=== PATIENT | male | born 1940 | race Two or more races ===

== ENCOUNTER 2020-09-04 13:35 | Emergency (ER) | payer MEDICARE ==
[~2020-09-04] VITALS: Ht 172.7 cm; Wt 65.8 kg
[2020-09-04 13:42] VITALS: BP 134/44
--- NOTE | 2020-09-04 13:42 | NUR ---
ED Nurse Note: Patient BIBIwona [id number] from [facility] c/o SOB x couple minutes ago. Per EMS, pt was desatting to 88% RA, placed on nc 4L, O2 sat 98%. Pt AAOx1, non verbal but is reponsive to pain and name. No signs of distress at this time. Pt placed on quality assurance monitor body. ERMD at bedside.
--- NOTE | 2020-09-04 13:43 | Emergency Room Report ---
History of Present Illness General Chief Complaint: Hypoxia Source: EMS (Brody Knox MD) Present Illness HPI Disclaimer: Please note that this report is being documented using DRAGON technology. This can lead to erroneous entry secondary to incorrect interpretation by the dictating instrument. HPI: 80-year-old male presents from nursing facility for evaluation of hypoxia. He has a history of hypertension, hyperlipidemia, CAD, Alzheimer's dementia and diabetes. He tested positive and was treated for Covid pneumonia on 08/26. He appears to be on Augmentin. Per EMS, his nursing facility found him hypoxic saturating 88% on room air. Improved with nasal cannula to 100%. No respiratory difficulty noted. Patient does not provide other significant information given his dementia. He does deny pain. PMH: Alzheimer's dementia, hypertension, hyperlipidemia, diabetes, CAD PSH: Unable to obtain from patient Allergies: Unable to obtain from patient Social Hx: Unable to obtain from patient (Brody Knox MD) Allergies: Coded Allergies: No Known Allergies (Unverified , 09/04/20) Review of Systems All Other Systems: negative except mentioned in HPI (Brody Knox MD) Physical Exam General: Somnolent but arousable to light touch, Colombian-speaking. Confused. No acute distress HEENT: NC/AT. EOMI. Cardiovascular: RRR. S1 and S2 normal. No murmur appreciated Resp: Slight increase in work of breathing. Saturating 107 nasal cannula. No wheezing. Abdomen: Abdomen is soft, nondistended. Nontender Skin: Intact. No abrasions, laceration or rash over the exposed skin MSK: Normal tone and bulk. Moving all extremities. No obvious deformity. Neuro: Somnolent. Arousable to light touch. Confused. Colombian-speaking (Brody Knox MD) Medical Decision Making Diagnostic Impression: Primary Impression: COVID-19 Additional Impressions: Hypoxia Respiratory distress ER Course 80-year-old male presents for evaluation of hypoxia in the setting of recent diagnosis of COVID-19 pneumonia. He appears to be on amoxicillin. Concern for worsening pneumonia, pulmonary edema, PE, ACS, bronchitis, asthma exacerbation, among others. Saturating 100% on nasal cannula no respiratory distress. Will obtain broad labs, give dexamethasone, repeat chest x-ray to evaluate for infiltrate burden. Patient will likely require admission. Signed out to oncoming physician pending completion of work-up and ultimate disposition. (Brody Knox MD) ER Course I spoke with Dr. Martinez at [facility] who accepted the patient for transfer. Case #[id number]. Patient had normal oxygen saturation on 2 L nasal cannula throughout the rest of his stay in the emergency department. He was mildly tachycardic at around 120 bpm and this gradually improved with IV fluids. Initial lactate was 2.3. Given a 30 cc/kg fluid bolus and will await results of repeat lactic acid. Patient tested positive once again for COVID-19 and chest x-ray showed diffuse interstitial infiltrates consistent with likely COVID-19 infection. He was given azithromycin. He also had evidence of urinary tract infection and was given ceftriaxone. D-dimer was elevated and he was given 40 units of subcutaneous Lovenox. Received Decadron IV. I spoke with the accepting physician at [facility] who agreed with the plan and that the patient was stable for transfer by ALS. EKG: NSR mildly tachycardic 111 bpm,, no ischemia, right bundle branch block. Normal axis.. No ectopy Rhythm strip: patient monitored for arrhythmias - no malignant dysrhythmias, runs of PVCs, nor pauses noted Chest x-ray: Indication shortness of breath: Mild diffuse pulmonary infiltrates in the interstitial regions. Otherwise no focal consolidation. No free air under the diaphragm. Normal heart borders. No bony abnormalities. No pneumothorax Total critical care time: Approximately 30 minutes Due to a high probability of clinically significant, life threatening deterioration, the patient required the highest level of preparedness to intervene emergently and I personally spent this critical care time directly and personally managing the patient. This critical care time included obtaining a history, examining the patient, pulse oximetry, ordering and reviewing studies, ordering treatments, evaluating response to treatment and updating management plan as needed, frequent reassessment and discussion with other providers as well as arranging for ultimate disposition. This critical to care time was performed to assess and manage the high probability of life-threatening deterioration that could result in multiorgan failure. This critical care time is separate from the separately billable procedures and treating other patients. Laboratory Tests Test 09/04/20 14:05 White Blood Count 10.1 K/UL (4.8-10.8) Red Blood Count 4.36 M/UL (4.70-6.10) L Hemoglobin 14.2 G/DL (14.2-18.0) Hematocrit 43.5 % (42.0-52.0) Mean Corpuscular Volume 100 FL (80-99) H Mean Corpuscular Hemoglobin 32.5 PG (27.0-31.0) H Mean Corpuscular Hemoglobin Concent 32.6 G/DL (32.0-36.0) Red Cell Distribution Width 12.6 % (11.6-14.8) Platelet Count 174 K/UL (150-450) Mean Platelet Volume 7.2 FL (6.5-10.1) Neutrophils (%) (Auto) % (45.0-75.0) Lymphocytes (%) (Auto) % (20.0-45.0) Monocytes (%) (Auto) % (1.0-10.0) Eosinophils (%) (Auto) % (0.0-3.0) Basophils (%) (Auto) % (0.0-2.0) Differential Total Cells Counted 100 Neutrophils % (Manual) 87 % (45-75) H Lymphocytes % (Manual) 13 % (20-45) L Monocytes % (Manual) 0 % (1-10) L Eosinophils % (Manual) 0 % (0-3) Basophils % (Manual) 0 % (0-2) Band Neutrophils 0 % (0-8) Platelet Estimate Adequate Platelet Morphology Normal Red Blood Cell Morphology Normal Prothrombin Time 14.5 SEC (9.30-11.50) H Prothrombin Time INR 1.3 (0.9-1.1) H Activated Partial Thromboplast Time 32 SEC (23-33) D-Dimer 1.31 mg/L FEU (0.00-0.49) H Urine Color Yellow Urine Appearance Clear Urine pH 5 (4.5-8.0) Urine Specific Oxly 1.020 (1.005-1.035) Urine Protein 3+ (NEGATIVE) H Urine Glucose (UA) 1+ (NEGATIVE) H Urine Ketones 1+ (NEGATIVE) H Urine Blood 5+ (NEGATIVE) H Urine Nitrite Negative (NEGATIVE) Urine Bilirubin Negative (NEGATIVE) Urine Urobilinogen Normal MG/DL (0.0-1.0) Urine Leukocyte Esterase 1+ (NEGATIVE) H Urine RBC 20-30 /HPF (0 - 0) H Urine WBC 0-2 /HPF (0 - 0) Urine Squamous Epithelial Cells Occasional /LPF Urine Bacteria Occasional /HPF (NONE) Sodium Level 140 MMOL/L (136-145) Potassium Level 4.4 MMOL/L (3.5-5.1) Chloride Level 104 MMOL/L (98-107) Carbon Dioxide Level 28 MMOL/L (21-32) Anion Gap 8 mmol/L (5-15) Blood Urea Nitrogen 30 mg/dL (7-18) H Creatinine 1.8 MG/DL (0.55-1.30) H Estimated Glomerular Filtration Rate 36.3 mL/min (>60) Glucose Level 200 MG/DL (74-106) H Lactic Acid Level 2.30 mmol/L (0.4-2.0) H Calcium Level 9.3 MG/DL (8.5-10.1) Ferritin 710 NG/ML (8-388) H Total Bilirubin 0.4 MG/DL (0.2-1.0) Aspartate Amino Transferase (AST) 58 U/L (15-37) H Alanine Aminotransferase (ALT) 22 U/L (12-78) Alkaline Phosphatase 59 U/L (46-116) Lactate Dehydrogenase 375 U/L (81-234) H Total Creatine Kinase 337 U/L (26-308) H Creatine Kinase MB 0.6 NG/ML (0.0-3.6) Creatine Kinase MB Relative Index 0.1 Troponin I 0.049 ng/mL (0.000-0.056) C-Reactive Protein, Quantitative 33.3 mg/dL (0.00-0.90) H Pro-B-Type Natriuretic Peptide 1251 pg/mL (0-125) H Total Protein 7.2 G/DL (6.4-8.2) Albumin 2.3 G/DL (3.4-5.0) L Globulin 4.9 g/dL Albumin/Globulin Ratio 0.5 (1.0-2.7) L Lipase 100 U/L (73-393) Microbiology Date/Time Source Procedure Growth Status 09/04/20 14:20 Nasopharynx SARS-CoV-2 RdRp Gene Assay - Final Complete (Monster Etienne M.D.) ER Course This patient was seen here and diagnosed with Covid pneumonia. He was transferred to [facility]. Blood culture today show gram-positive cocci in c lusters in aerobic bottle. Report faxed to [facility]. (Sunil Reed MD) Brody Knox MD Sep 04, 2020 13:43 Monster Etienne M.D. Sep 04, 2020 15:43 Sunil Reed MD Sep 06, 2020 05:47
[2020-09-04] MEDS ORDERED: dexAMETHasone 10mg/ml Inj IV ONE (13:45)
--- NOTE | 2020-09-04 14:05 | NUR ---
ED Nurse Note: IV line established. Blood, urine nad Covid sent to labs.
[2020-09-04 14:19] LABS: HEMATOCRIT 43.5 % (42.0-52.0); HEMOGLOBIN 14.2 G/DL (14.2-18.0); MEAN CORPUSCULAR VOLUME 100 FL (80-99); PLATELET COUNT 174 K/UL (150-450); RED BLOOD COUNT 4.36 M/UL (4.70-6.10); RED CELL DISTRIBUTION WIDTH 12.6 % (11.6-14.8); WHITE BLOOD COUNT 10.1 K/UL (4.8-10.8)
--- NOTE | 2020-09-04 14:20 | NUR ---
ED Nurse Note: Xray at bedside.
[2020-09-04 14:27] LABS: APPEARANCE,URINE CLEAR; BILIRUBIN, URINE NEGATIVE (NEGATIVE); GLUCOSE, URINE (UA) 1+ (NEGATIVE); KETONES,URINE 1+ (NEGATIVE); LEUKOCYTE ESTERASE ,URINE 1+ (NEGATIVE); NITRITE,URINE NEGATIVE (NEGATIVE); PH,URINE 5 (4.5-8.0); PROTEIN,URINE 3+ (NEGATIVE); UROBILINOGEN,URINE NORMAL MG/DL (0.0-1.0)
[2020-09-04 14:30] LABS: INR 1.3 (0.9-1.1)
[2020-09-04 14:33] LABS: CALCIUM 9.3 MG/DL (8.5-10.1); COLOR,URINE YELLOW; CREATININE 1.8 MG/DL (0.55-1.30); POTASSIUM 4.4 MMOL/L (3.5-5.1)
[2020-09-04] MEDS ORDERED: cefTRIAXone 1 GM in NS 55 ML IVPB ONE (14:45)
[2020-09-04] MEDS ORDERED: Azithromycin 500 MG in NS 275 ML IV ONE (14:45)
[2020-09-04 14:51] LABS: ALBUMIN 2.3 G/DL (3.4-5.0); ALBUMIN/GLOBULIN RATIO 0.5 (1.0-2.7); BILIRUBIN,TOTAL 0.4 MG/DL (0.2-1.0); CKMB 0.6 NG/ML (0.0-3.6)
[2020-09-04 15:00] VITALS: BP 115/67
[2020-09-04] MEDS ORDERED: Enoxaparin 40mg Inj SUBQ SCH (15:00)
[2020-09-04] MEDS ORDERED: LEXAPRO10 MG ORAL (15:25)
[2020-09-04] MEDS ORDERED: NAMENDA10 MG ORAL (15:25)
[2020-09-04] MEDS ORDERED: OS-CAL 500+D31 EAC1 PO (15:25)
[2020-09-04] MEDS ORDERED: FISH OIL 1,2001 EAC3 PO (15:25)
--- NOTE | 2020-09-04 16:00 | Diagnostic Imaging Report ---
Indication: Shortness of breath Technique: XRAY Chest 1v Comparison: None Findings: Heart is borderline enlarged. There is evidence of prior cardiac surgery with median sternotomy and multiple surgical clips suggesting CABG. There is a left-sided dual lead pacemaker with lead tips projecting over the expected regions of the right atrium and ventricle. There are streaky right suprahilar and bibasilar opacities. No pleural effusion or pneumothorax. No acute osseous abnormality. Impression: Streaky bilateral opacities (right suprahilar and bibasilar). Pneumonia not excluded. Clinical correlation and follow recommended.
[2020-09-04 17:34] VITALS: BP 149/75
--- NOTE | 2020-09-04 17:56 | NUR ---
ED Nurse Note: Report given to Christal from [facility].
[2020-09-04 17:58] VITALS: BP 149/75
--- NOTE | 2020-09-04 17:58 | NUR ---
ED Nurse Note: Pt transferred to [facility], picked up by 3 EMT via [facility]. AAOx1, follows simple command. No SOB, on 4L nc. IV line on right forearm 20g patent and intact. Pt does not have any belongings.
--- NOTE | 2020-09-06 20:40 | Cardiology Report ---
APPROVED REPORT EKG Measurement Heart [id number] ID [id number] <Conclusion> Sinus tachycardia Right bundle branch block Inferior infarct, age undetermined Abnormal ECG
== END 2020-09-04 17:58 | disposition other institution (70) ==
LOC: EDBD 13:35 → EMR 14:41 → EDBEDREQ 15:09 → EMR 17:58
DX: U07.1 COVID-19 (principal); R09.02 Hypoxemia; R06.03 Acute respiratory distress; N39.0 Urinary tract infection, site not specified; G30.9 Alzheimer's disease, unspecified; F02.80 Dementia in other diseases classified elsewhere, unspecified severity, without behavioral disturbance, psychotic disturbance, mood disturbance, and anxiety; I10 Essential (primary) hypertension; E78.5 Hyperlipidemia, unspecified; E11.9 Type 2 diabetes mellitus without complications; I25.10 Atherosclerotic heart disease of native coronary artery without angina pectoris
CPT/HCPCS: 36415; 71045; 80053; 81003; 82550; 82553; 82728; 83605; 83615; 83690; 83880; 84484; 85007; 85025; 85379; 85610; 85730; 86140; 87040; 93005; 96361; 96365; 96367; 96375; 99291; J0456; J0696; J1650; J7050; U0002